=== PATIENT | male | born 1960 | race Caucasian/White ===

== ENCOUNTER → 2024-03-19 | Outpatient (CLI) | payer OTHER, SELFPAY ==
--- NOTE | 2024-03-19 15:30 | XR_ITS ---
Examination: Abdomen sonogram, Limited Date and time of exam: March 19, 2024 1540 hours INDICATIONS: Elevated liver enzymes on laboratory examination 3 weeks ago, right upper abdominal pain 6 months Technique: Real-time [place] scale transabdominal sonographic images of the upper abdomen obtained. Findings: Absent gallbladder Normal common bile duct 0.2 cm Pancreatic head measures 4.0 cm Liver 19 cm fatty infiltration Normal hepatopedal portal venous flow Patent IVC IMPRESSION: Absent gallbladder Normal common bile duct Pancreatic head measures prominent Moderate hepatomegaly fatty liver
== END | disposition home or self-care (01) ==
LOC: CDIM 15:21
PROVIDERS: PCP Family Medicine; Referring Provider Family Medicine; Visit Provider Family Medicine
DX: K76.0 Fatty (change of) liver, not elsewhere classified (principal); Z90.49 Acquired absence of other specified parts of digestive tract
CPT/HCPCS: 76705

== ENCOUNTER → 2024-09-02 | Outpatient (CLI) | payer OTHER, SELFPAY ==
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
== END | disposition home or self-care (01) ==
LOC: SMRI 11:12
PROVIDERS: PCP Family Medicine; Referring Provider Family Medicine; Visit Provider Family Medicine
DX: M51.360 Other intervertebral disc degeneration, lumbar region with discogenic back pain only (principal); M51.370 Other intervertebral disc degeneration, lumbosacral region with discogenic back pain only; M48.02 Spinal stenosis, cervical region; M25.78 Osteophyte, vertebrae
CPT/HCPCS: 72141; 72148

== ENCOUNTER → 2024-09-02 | Outpatient (CLI) | payer OTHER, SELFPAY ==
--- NOTE | 2024-09-02 14:00 | XR_ITS ---
Examination: CT abdomen with intravenous contrast CT pelvis with intravenous contrast 2-D coronal reconstructions 2-D sagittal reconstructions Date and time of exam:September 02, 2024, 1549 hours Comparison 12/26/2023 INDICATIONS: Onset of generalized abdominal pain today. CTDI: vol (mGy) 16.9 DLP: (mGycm) 1182 Technique: Multiple axial sections of the abdomen and pelvis have been obtained. 64 slice high-resolution scanner used. 3 mm axial sections have been obtained, post intravenous injection 60 cc [id number] 2-D sagittal, coronal reconstructions obtained. Low dose protocols were performed. One or more of the following dose reduction techniques were used; automated exposure control, adjustment of the mA and/or KV according to patient size, use of iterative reconstruction technique. Findings: There is irregular in contour with diffuse fatty infiltration. No focal liver lesions. Absent gallbladder. No pancreatic mass. Spleen is not enlarged. 2 mm nonobstructing left renal calculus. No hydronephrosis or ureteral calculi Normal appendix Colonic diverticulosis, no diverticulitis Contracted urinary bladder, urinary bladder wall thickening up to 10 mm Transverse prostate dimension 4.5 cm IMPRESSION: Primary hepatocellular disease. 2 mm nonobstructing left renal calculus Normal appendix Bladder wall thickening up to 10 mm, differential would include cystitis Advanced degenerative disc disease L5-S1
[2024-09-02 14:52] LABS: Albumin, Serum 4.3 gm/dL (3.4-4.8); Anion Gap 12 (7-16); BUN/Creatinine Ratio 13 Ratio (12-20); Blood Urea Nitrogen 13 mg/dL (9-23); Calcium 8.9 mg/dL (8.3-10.6); Calcium (Corrected) 8.9 mg/dL (8.5-10.1); Carbon Dioxide 26.9 mMol/L (20.0-31.0); Chloride 106 mMol/L (98-107); Glucose 126 mg/dL (74-106); Osmolality,Calculated 290 (275-295); Phosphorous 2.1 mg/dL (2.4-5.1); Potassium 4.2 mMol/L (3.4-5.1); Sodium 145 mMol/L (136-145); eGFR > 60 See Note
== END | disposition home or self-care (01) ==
PROVIDERS: PCP Family Medicine; Referring Provider Family Medicine; Visit Provider Family Medicine
DX: K76.9 Liver disease, unspecified (principal); N20.0 Calculus of kidney; M51.370 Other intervertebral disc degeneration, lumbosacral region with discogenic back pain only; N32.89 Other specified disorders of bladder; R10.9 Unspecified abdominal pain
CPT/HCPCS: 36415; 74177; 80069; A4649; Q9967